=== PATIENT | female | born 1960 | race Caucasian/White ===

== ENCOUNTER 2018-11-11 18:24 | Emergency (ER) | payer OTHER ==
--- NOTE | 2018-11-11 19:00 | EDPHY ---
General - History Smoking Status: Never smoked Time Seen by Provider: 11/11/18 19:00 Narrative: CLINICAL IMPRESSION: Left thumb laceration ASSESSMENT/PLAN: Patient is a 57-year-old female with no significant medical history who presents to the emergency department after sustaining a laceration to the and of her left thumb. Patient is not toxic appearing, she is in no distress. Physical examination reveals subcentimeter laceration at the very distal portion of the dorsal left distal phalanx involving the nail. The area was anesthetized and cleansed, the nail was lacerated however well adhered and approximated; secured with Dermabond as discussed in the procedure note. There is no evidence of germinal matrix injury, deep structure involvement, neurovascular compromise, foreign body, or bony involvement. The wound was not contaminated, tetanus status was up-to-date. Wound care instructions discussed with patient, she will continue to wear splint for protection for the next several days. She is well established with her PCP and will call to schedule an appointment for wound check. Return precautions discussed- she will return for increased pain, signs of infection, fever, vomiting, if the wound opens or for any other concerns. Patient verbalizes understanding and is in agreement with plan. DIFFERENTIAL DIAGNOSIS: includes but not limited to laceration of tendon or vascular structure, underlying fracture, laceration with retained FB ED PROCEDURES: Laceration Repair Verbal consent obtained by patient. Risks discussed, including but not limited to infection, pain, retained foreign body, need for additional repair, poor cosmetic result, tendon damage, nerve damage, poor wound healing, vascular damage. Alternatives to repair discussed. [place] protocol used to establish correct patient, procedure, equipment, human resources support specialist, and site. Anesthesia obtained by local infiltration. Anesthetized with 1% lidocaine without epinephrine. Laceration location left thumb, dorsal aspect of the distal phalanx, length 8 mm, depth 2 mm. Patient was prepped and draped in usual sterile fashion. Hemostasis achieved with direct pressure. Area was cleansed with Shur-Clens and irrigated with sterile saline as per protocol. No foreign body or material removed. Repair method tissue adhesive. Patient tolerated well with no immediate complications. Wound care: Clean and dry, leave tissue adhesive in place until it falls off. CHIEF COMPLAINT: Laceration HPI: Patient is a 57-year-old female with no significant medical history who presents to the emergency department after she sustained a thumb laceration just prior to arrival. Patient reports she was cutting lobato peppers when she accidentally cut through the end of her thumb. She was able to get the bleeding under control. She denies any numbness or tingling of the distal thumb , denies any other injury. She is up-to-date on her tetanus. She is right- hand dominant. PAST MEDICAL HISTORY: Denies Pertinent Past Surgical History: Denies Social History: Denies cigarette smoking or illicit drug use REVIEW OF SYSTEMS: All other systems negative Constitutional: No fever, no chills Musculoskeletal: No deformity, no joint pain Skin: Laceration Neurological: No sensory loss or weakness. PHYSICAL EXAM: General Appearance: Alert, oriented, appropriate for age, cooperative, NAD, well hydrated, non-toxic appearing, VSS, no hypoxia. Neurological: Alert and oriented x 3 Skin: 8 mm laceration to the distal portion of the left thumb, distal phalanx on the dorsal aspect, this does involve the very distal portion of the nail. The nail is well at here today and well-approximated, it does not involve the germinal matrix.. Upper Extremities: Right upper extremity is nontender with full range of motion. Left thumb is nontender except for the site of the laceration, interphalangeal joints were tested independently with full strength. Two point discrimination is intact distal to the laceration. Left upper extremities otherwise unremarkable. Lower Extremities: Intact distal pulses, No edema, No tenderness, No cyanosis, full range of motion intact, No calf tenderness bilaterally. MEDICAL DECISION MAKING: Patient was seen independently. Secondary supervising physician at time of evaluation was Dr. Hodge, he did not evaluate this patient. Diagnosis: Left thumb laceration. New, requires workup Summary: See assessment and plan for summary of ED visit Clinical lab tests: Not applicable. Independent visualization of images, tracing, or specimens not applicable. Decision to obtain medical records or history from someone other than the patient: No Review / Summarize previous medical records: Yes Discussed patient with another provider [facility] - Objective Vital Signs: Initial Vital Signs Temperature (C) 36.3 C 11/11/18 18:42 Heart Rate 95 11/11/18 18:42 Respiratory Rate 18 11/11/18 18:42 Blood Pressure 144/97 H 11/11/18 18:42 O2 Sat (%) 97 11/11/18 18:42 O2 Delivery Mode Room Air Allergies/Adverse Reactions: No Known Allergies Allergy (Unverified 11/11/18 18:44) Home Medications: Medication Instructions Recorded Estrogens,Esterified 11/11/18 Progesterone 11/11/18 Xanax 11/11/18 Zoloft 100mg (*) 11/11/18 Departure - Departure Disposition: Home, Routine, Self-Care Clinical Impression: Laceration of thumb Condition: Good Instructions: Laceration (ED) Additional Instructions: DISCHARGE INSTRUCTIONS FROM YOUR DOCTOR Thank you for visiting our emergency department today. Please keep in mind that discharge from the emergency department does not mean that there is nothing wrong - it simply means that we have not identified an emergency condition that requires further evaluation or treatment in the hospital. You should always plan to follow up with primary care for re-evaluation of your condition in the next 2-3 days. Keep wound clean and dry for 24 hours. You have Dermabond which is skin glue adhesive, leave in place, do not take this off. Please continue to wear the splint for 3-5 days for protection or longer as needed. Do not soak the wound. For pain control: You may take Tylenol, I recommend 500-1000 mg every 6-8 hours as needed. Take with food and a full glass of water. Stop taking if this is upsetting her stomach. Do not exceed 4000 mg in a 24 hr period. You may also take ibuprofen, recommend 400 mg every 6 hr. Take with food and a full glass of water. Stop taking if this upsets her stomach. Do not exceed 2400 mg in a 24 hr period. Schedule a follow-up visit with your primary care physician for wound check for any concerns. Return for signs of wound infection ie: redness, swelling, drainage, foul odor, red streaks, fever, chills, pain, bleeding, if the stitches pop, if the wound opens or for any other new, worsening or worrisome symptoms. People present with illnesses and injuries in different ways, and it is always possible that we have missed something. You may always return for re-evaluation if symptoms worsen or if they are not improving or if you develop new/different symptoms. Again, thank you for choosing our emergency department. We hope that you feel better. Referrals: Mireya Herrera MD [Primary Care Provider] - 2-3 days, if not improved
[2018-11-11] MEDS ORDERED: SKIN ADHESIVE (DERMABOND) 1 EACH TP ONE (19:34)
[2018-11-11 20:19] VITALS: BP 130/95
== END 2018-11-11 20:19 | disposition home or self-care (01) ==
PROC: 0HQGXZZ Repair Left Hand Skin, External Approach (ICD-10-PCS; principal; 2018-11-11)
DX: S61.012A Laceration without foreign body of left thumb without damage to nail, initial encounter (principal); W26.0XXA Contact with knife, initial encounter; Y93.G1 Activity, food preparation and clean up; Y92.9 Unspecified place or not applicable; Y99.9 Unspecified external cause status
CPT/HCPCS: L3925